=== PATIENT | female | born 1995 | race Caucasian/White ===

== ENCOUNTER 2016-12-21 23:36 | Emergency (ER) | payer OTHER, SELFPAY ==
[~2016-12-21] VITALS: Ht 170.2 cm; Wt 56.0 kg
[2016-12-22 04:04] LABS: ALBUMIN 4.2 GM/DL (3.2-5.2); ALBUMIN/GLOBULIN RATIO 1.08 (1.00-1.93); ALKALINE PHOSPHATASE 67 U/L (45-117); ALT/SGPT 21 U/L (12-78); ANION GAP 8 MEQ/L (8-16); AST/SGOT 18 U/L (15-37); BILIRUBIN,TOTAL 0.2 MG/DL (0.2-1.0); BLOOD UREA NITROGEN 8 MG/DL (7-18); CALCIUM LEVEL 8.6 MG/DL (8.5-10.1); CARBON DIOXIDE LEVEL 23 MEQ/L (21-32); CHLORIDE LEVEL 110 MEQ/L (98-107); CREATININE FOR GFR 0.66 MG/DL (0.55-1.02); GLOMERULAR FILTRATION RATE > 60.0 (>60); GLUCOSE, FASTING 108 MG/DL (70-105); SODIUM LEVEL 141 MEQ/L (136-145); TOTAL PROTEIN 8.1 GM/DL (6.4-8.2)
[2016-12-22 04:07] LABS: MEAN CORPUSCULAR HGB CONC 34.3 g/dl (32.0-36.5); MEAN CORPUSCULAR VOLUME 90.4 fl (80.0-96.0); PLATELET COUNT, AUTOMATED 311 k/mm3 (150-450); RED CELL DISTRIBUTION WIDTH 12.2 % (11.5-14.5); WHITE BLOOD COUNT 12.7 K/mm3 (4.0-10.0)
[2016-12-22 04:08] LABS: ADD MANUAL DIFFER NO; ADD MORPHOLOGY? NO; BASO % 0.2 % (0.0-1.0); DIFF SLIDE NUMBER 72; EOS % 0.3 % (0.0-3.0); LARGE UNSTAINED CELL # 0.1 K/mm3 (0.0-0.4); LYMPH # 1.9 K/mm3 (1.5-6.5); LYMPH % 15.1 % (24.0-44.0); MONO # 0.7 K/mm3 (0.0-0.8); MONO % 5.3 % (0.0-5.0); NEUTROPHILS # 99.4 K/mm3 (1.8-7.7); NEUTROPHILS % 78.1 % (36.0-66.0)
--- NOTE | 2016-12-22 05:05 | ED PDOC ---
Post-Departure Follow-Up This record was completed partially or completely on paper due to electronic EMR downtime. Please see the scanned paper chart attached. Melissa Burgos MD Dec 22, 2016 05:05
[2016-12-22 07:03] LABS: CONTROL LINE HCG INT CTR LINE PRESENT
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
[2016-12-22] MEDS ORDERED: ACETAMINOPHEN TAB 650MG DOSE (2X325MG) PO ONE (10:15)
[2016-12-22] MEDS ORDERED: ULIPRISTAL ACETATE 30 MG TAB (ELLA) PO ONE (13:00)
[2016-12-22] MEDS ORDERED: EXPOSURE KIT-ADULT 7 DAY SUPPLY PO ONE ×2 (13:00)
[2016-12-22] MEDS ORDERED: cefTRIAXone SOD 250 MG VIAL (J0696) IM ONE (13:00)
[2016-12-22] MEDS ORDERED: metroNIDAZOLE (FLAGYL) 500 MG TAB PO ONE (13:00)
[2016-12-22] MEDS ORDERED: AZITHROMYCIN 250 MG TAB PO ONE (13:00)
[2016-12-22] MEDS ORDERED: RALT40TA PO (13:42)
[2016-12-22] MEDS ORDERED: TRUVTAB PO (13:42)
[2016-12-22] MEDS ORDERED: ZOFR4TAB3 PO (13:42)
[2016-12-22] MEDS ORDERED: LIDOCAINE 1% MDV 20ML VIAL As Ordered ONE (15:34)
[2016-12-22 17:15] VITALS: BP 140/87
== END 2016-12-22 17:20 | disposition home or self-care (01) ==
LOC: M ED 23:36 → EDBD 23:36 → M ED 12-22 17:20
DX: T76.11XA Adult physical abuse, suspected, initial encounter (principal); F17.210 Nicotine dependence, cigarettes, uncomplicated; X58.XXXA Exposure to other specified factors, initial encounter; Y92.89 Other specified places as the place of occurrence of the external cause; Y99.9 Unspecified external cause status; Y93.9 Activity, unspecified
CPT/HCPCS: 70486; 73130; 80053; 84703; 85025; 86780; 86803; 87210; 87340; 87491; 87591; 87899; 96372; 99285; G0480; J0696